=== PATIENT | female | born 1970 | race African-American/Black ===

== ENCOUNTER 2017-09-27 13:07 | Emergency (ER) | payer BC ==
[~2017-09-27] VITALS: Ht 167.6 cm; Wt 70.9 kg
[2017-09-27] MEDS ORDERED: fentaNYL/PF 50MCG/1 ML 2ML syringe IV ONE (13:20)
[2017-09-27] MEDS ORDERED: ketamine 10mg/ml 20ml inj IV ONE (13:40)
[2017-09-27] MEDS ORDERED: HYDROcodone/acetaminophen 5mg/325mg tablet PO ONE (14:25)
[2017-09-27] MEDS ORDERED: ondansetron/PF 4mg/2ml inj IV ONE (14:25)
[2017-09-27] MEDS ORDERED: ketorolac trometh. 30mg/ml inj. IV ONE (14:25)
[2017-09-27] MEDS ORDERED: HYDR-569 PO (14:25)
[2017-09-27] MEDS ORDERED: proCHLORperazine 10 MG/2 ml inj IV ONE (15:35)
[2017-09-27 16:00] VITALS: BP 130/89
== END 2017-09-27 16:02 | disposition home or self-care (01) ==
LOC: ER 13:07 → EDSEX 13:07 → ER 16:02
DX: S82.891A Other fracture of right lower leg, initial encounter for closed fracture (principal); I10 Essential (primary) hypertension; Z98.890 Other specified postprocedural states; Z79.899 Other long term (current) drug therapy; X50.1XXA Overexertion from prolonged static or awkward postures, initial encounter; Y93.89 Activity, other specified; Y92.89 Other specified places as the place of occurrence of the external cause; Y99.8 Other external cause status
CPT/HCPCS: 27818; 73600; 73610; 96374; 96375; 99152; 99291; J0780; J1885; J2405; J3010